=== PATIENT | male | born 1970 | race Caucasian/White ===

== ENCOUNTER 2023-05-05 12:39 | Observation (INO) | payer MEDICARE, MEDICAID, SELFPAY ==
[2023-05-05] VITALS (31 sets, daily range): BP systolic 95–142; BP diastolic 62–94; PULSE 60–81; RESP 10–22; TEMP 35.9–36.6; O2SAT 87–100; BMI 32.7
--- NOTE | ~2023-05-05 | MR_ITS ---
EXAMINATION: MR brain/brain stem wo/w con DATE: 05/06/2023 10:18 INDICATION: Altered mental status TECHNIQUE: Magnetic resonance imaging (MRI) of the brain and brainstem was performed without and with 20 mL Multihance intravenous contrast. Sequences included sagittal and axial T1-weighted SE, axial d iffusion-weighted FS SE, axial T2*-weighted GRE, axial T2-weighted FLAIR, and axial T2-weighted FSE. Postcontrast axial and coronal T1-weighted SE was obtained. Apparent diffusion coefficient (ADC) maps were created. COMPARISON: CT dated 05/05/2023 FINDINGS: There are no areas of restricted diffusion to suggest acute infarction. No intracranial hemorrhage or abnormal intracranial mass lesion. There are no intraparenchymal signal abnormalities seen on the ot her pulse sequences. The ventricles are symmetric and normal in size. There are no abnormal extra-axi al fluid collections. Flow voids are seen in the cerebral arteries on the T2-weighted sequences consi stent with their expected patency. Mild mucoperiosteal thickening in the paranasal sinuses. Visualize d orbits and soft tissues are unremarkable. There are no areas of abnormal enhancement on the post co ntrast images. IMPRESSION: 1. No acute intracranial process or abnormally enhancing brain lesions. Reviewed, dictated and finalized at location A.
--- NOTE | ~2023-05-05 | CT_ITS ---
Non-contrast Head CT History: Altered mental status Technique: Axial non-contrast imaging of the brain was performed. Dose reduction technique was used on this scan by utilizing automated exposure control and iterative reconstruction technique. The dose -length product (DLP) was 605.33 mGy-cm. Findings: There is no evidence of intracranial hemorrhage, mass lesion, or acute infarct. Brain par enchyma appears normal. The ventricles and subarachnoid spaces are normal in size. The calvarium ap pears normal. The visualized paranasal sinuses and mastoid air cells are clear. Impression: No significant abnormality seen. Reviewed, dictated and finalized at location . Impression: No significant abnormality seen.
--- NOTE | 2023-05-05 12:58 | ECG_ITS ---
Measurements Intervals [place] Rate: 67 P: -5 HI: 186 QRS: 30 QRSD: 93 T: 28 QT: 372 QTc: 395 Interpretive Statements SINUS RHYTHM NORMAL ECG NO PREVIOUS ECG AVAILABLE FOR COMPARISON Electronically Signed On 05-05-2023 20:33:35 CDT by Osman Rojas D.O.
[2023-05-05 13:08] LABS: Glucose Point of Care 99 mg/dl (65-105)
[2023-05-05 13:08] LABS: Basophils Percent Auto 0.6 % (0.2-1.2); Eosinophils Absolute Auto 0.2 K/mm3 (0-0.3); Hematocrit 48.2 % (42.0-52.0); Hemoglobin 15.5 g/dL (14.0-18.0); Immature Granulocyte Absolute 0.01 K/mm3 (0.00-0.031); Immature Granulocyte Percent A 0.2 % (0-0.5); Lymphocytes Absolute Auto 1.36 K/mm3 (0.9-3.2); Lymphocytes Percent Auto 27.6 % (18.3-44.2); Mean Corpuscular HGB Conc 32.2 g/dl (32-36); Mean Corpuscular Hemoglobin 31.7 pg (26-34); Mean Corpuscular Volume 98.6 fl (80-100); Mean Platelet Volume 9.7 fl (7.4-10.4); Monocytes Absolute Auto 0.3 K/mm3 (0.1-0.6); Monocytes Percent Auto 6.5 % (2.6-8.5); Neutrophils Absolute Auto 3.1 K/mm3 (1.3-6.7); Neutrophils Percent Auto 62.1 % (45.5-73.1); Platelet Count Result 191 k/mm3 (150-375); Red Blood Count 4.89 M/mm3 (4.6-6.20); Red Cell Distribution Width 13.5 % (11.5-14.5); White Blood Count 4.9 K/mm3 (4.5-10.0)
[2023-05-05 13:19] LABS: Alanine Aminotransferase 33 U/L (6-50); Albumin Level 4.3 g/dL (3.5-5.1); Alkaline Phosphatase 83 U/L (38-126); Anion Gap 4 mmol/L (8-16); Aspartate Amino Transferase 35 U/L (17-59); Bilirubin,Total 0.4 mg/dL (0.2-1.3); Blood Urea Nitrogen 11 mg/dL (9-20); Carbon Dioxide 31 mmol/L (22-30); Chloride 106 mmol/L (98-107); Creatine Kinase 176 U/L (55-170); Estimated CRCL calculation 86 ml/min; Estimated Glomerular Filt Rate > 60; Glucose 119 mg/dL (65-110); Potassium 4.3 mmol/L (3.4-5.0); Sodium 141 mmol/L (137-145)
[2023-05-05 13:20] LABS: Magnesium 2.4 mg/dL (1.6-2.3); Prothrombin Time 13.4 Seconds (11.1-14.7)
[2023-05-05 13:21] LABS: Partial Thromboplastin Time 29.5 SECONDS (22.3-36.8)
[2023-05-05] MEDS: LACTATED RINGERS 1,000 ML 999 ML IV CONT (13:30)
[2023-05-05 13:41] LABS: Acetaminophen < 10 ug/mL (10-30); Ammonia < 9 umol/L (9-30); Ethanol < 10 mg/dL (<10); Salicylate < 1.0 mg/dL (2-20)
--- NOTE | 2023-05-05 14:09 | ED.GENADULT ---
HPI - General Adult General Chief complaint: Alcohol Stated complaint: ams Time Seen by Provider: 05/05/23 12:44 Source: patient, EMS, RN notes reviewed and old records reviewed Mode of arrival: EMS Limitations: no limitations History of Present Illness HPI narrative: This is a 53 year old male with history of hypertension, hyperlipidemia, drug abuse who presents for evaluation of slurred speech and difficulty walking. Patient reports his last drink was 4 days ago and he has been in [place] for alcohol detox for 4 days. He reports he was started on new medication and he thinks it is making his act off. He states he started having trouble walking 3 days ago but he states he is walking better today. He reports he has been having this slow, slurred speech for 3 days. He denies headache, vomiting, chest pain, cough, shortness of breath, abdominal pain, diarrhea. I reviewed his medications with him and he seems to be taking Tegretol and Librium which are new medications for him. He last took Librium last night at 8 pm. IT appears he took Tegretol today. Related Data Home Medications Medication Instructions Recorded Confirmed albuterol sulfate 90 mcg/actuation 2 inh inhalation QID PRN short of 05/05/23 05/05/23 aerosol inhaler (Ventolin HFA) breath aripiprazole 10 mg tablet 10 mg PO HS 05/05/23 05/05/23 buspirone 15 mg tablet 15 mg PO Q12H 05/05/23 05/05/23 carbamazepine 200 mg tablet 200 mg PO Q12H 05/05/23 05/05/23 chlordiazepoxide HCl 25 mg capsule See Rx Instructions .Route 05/05/23 05/05/23 .COMPLEX PRN ciwa clonidine HCl 0.1 mg tablet 0.1 mg PO HS 05/05/23 05/05/23 famotidine 20 mg tablet 20 mg PO Q12H 05/05/23 05/05/23 fenofibrate 54 mg tablet 54 mg PO DAILY 05/05/23 05/05/23 fluticasone fur. 100 mcg-umeclid 1 inh inhalation DAILY 05/05/23 05/05/23 62.5 mcg-vilant 25 mcg inhalat.powder (Trelegy Ellipta) folic acid 1 mg PO DAILY 05/05/23 05/05/23 gabapentin 100 mg capsule 100 mg PO DAILY 05/05/23 05/05/23 gabapentin 100 mg capsule 200 mg PO HS 05/05/23 05/05/23 lisinopril 10 mg tablet 10 mg PO DAILY 05/05/23 05/05/23 lorazepam 0.5 mg tablet 0.5 - 1 mg PO DAILY PRN Anxiety 05/05/23 05/05/23 metoprolol tartrate 50 mg tablet 50 mg PO Q12H 05/05/23 05/05/23 multivitamin 1 tablet PO DAILY 05/05/23 05/05/23 nicotine 21 mg/24 hr daily 21 mg topical DAILY PRN Nicotine 05/05/23 05/05/23 transdermal patch Cravings nitroglycerin 0.4 mg sublingual 0.4 mg sublingual Q5MIN PRN Chest 05/05/23 05/05/23 tablet Pain omeprazole 40 mg capsule,delayed 40 mg PO DAILY 05/05/23 05/05/23 release prazosin 1 mg capsule 1 mg PO HS 05/05/23 05/05/23 rosuvastatin 40 mg tablet 40 mg PO HS 05/05/23 05/05/23 sumatriptan succinate 50 mg tablet See Rx Instructions .Route 05/05/23 05/05/23 .COMPLEX PRN Migraine Headache Allergies Allergy/AdvReac Type Severity Reaction Status Date / Time bee venom protein (honey bee) Allergy Hives Verified 05/05/23 12:47 Review of Systems Constitutional: Constitutional: Reports weakness Cardiovascular: Cardiovascular: Denies syncope, Denies rapid heart rate, Denies irregular heart rhythm, Denies leg edema and Denies dyspnea Respiratory: Respiratory: Denies chest congestion, Denies hemoptysis, Denies excessive phlegm production and Denies dyspnea Gastrointestinal: Gastrointestinal: Denies abdominal pain, Denies hematochezia, Denies diarrhea, Reports nausea and Denies vomiting Genitourinary: Genitourinary: Denies hematuria, Denies dysuria, Denies penile discharge and Denies testicular pain Musculoskeletal: Musculoskeletal: Denies joint swelling, Denies loss of height and Denies muscle weakness Neurologic: Denies syncope, Denies focal weakness and Reports weakness PMFSH Past Medical History Medical History (Updated 05/05/23 @ 22:09 by Uma Starr MD) Alcohol abuse Hyperlipidemia Hypertension Social History Social History (Updated 05/05/23 @ 14:15 by Uma Starr MD) Smoking pack
[2023-05-05 14:28] LABS: Appearance Urine Clear (Clear); Bilirubin Urine Negative (Negative); Blood Urine Negative (Negative); Color Urine Yellow (Yellow); Glucose Urine UA Negative (Negative); Ketones Urine Negative (Negative); Leukocyte Esterase Ur Negative LEU/UL (Negative); Nitrate Urine Negative (Negative); Protein Urine Negative (Negative); Specific Grav Ur 1.015 (1.001-1.035); pH Urine 7.5 (5.0-9.0)
[2023-05-05 14:36] LABS: Add Urine Microscopic? NO
[2023-05-05 14:53] LABS: Barbiturate Screen Urine Negative (Negative); Benzodiazepines Screen Urine Positive (Negative)
[2023-05-05 14:58] LABS: Amphetamine Screen Urine Negative (Negative); Cannabinoid Screen Urine Negative (Negative); Cocaine Screen Urine Negative (Negative); Methadone Screen Urine Negative (Negative); Opiate Screen Urine Negative (Negative); Phencyclidine Screen Urine Negative (Negative)
[2023-05-05] MEDS: ACETAMINOPHEN 500 MG TABLET 1000 MG PO (18:56)
[2023-05-05 21:30] LABS: Glucose Point of Care 100 mg/dl (65-105)
--- NOTE | 2023-05-05 21:56 | PM.IMHP ---
H&P: HPI History of Present Illness Date/Time: 05/05/23 21:56 Chief Complaint: Slurred Speech Narrative: 53 y/o M presents here with slurred speech, gait changes, and vision changes with PMH of alcoholism, HTN, HLD, depression, and pancreatitis. Patient presented here from inpatient treatment center, [facility], with 3 days slurred speech, change in gait /difficulty walking that is worse than his baseline, vision changes. Patient woke up with symptoms 3 days ago. symptoms did not resolve with time. Patient at baseline has some difficulty walking post hip surgery on the right, uses a cane. Now requiring a wheelchair. Speech is slow and slurred. No difficulty with word finding. No changes in sensation. No upper extremity weakness. Only recent change was that he started inpatient treatment for his alcohol abuse. Patient relapsed 4 years ago and has been drinking a 60 pack of beer daily. 4 days ago, was started on carbamazepine and Librium. Reports that the facility manages his medication and administers it to him. Review of Systems Review of Systems: All systems reviewed & are unremarkable except as noted in HPI and below PMFSH Past Medical History Medical History (Updated 05/05/23 @ 22:33 by Taisha Gongora APRN) Alcohol abuse Hyperlipidemia Hypertension Pancreatitis Surgical History Surgical History (Updated 05/05/23 @ 22:25 by Taisha Gongora APRN) History of hip surgery Hip/Pelvis Fx - R History of knee replacement L Knee History of surgery on upper extremity Fixation of Fx - L Family History Family History (Updated 05/05/23 @ 22:26 by Taisha Gongora APRN) Father Acute myocardial infarction Grandparent Acute myocardial infarction Lung cancer Mother Breast cancer Social History Social History (Updated 05/05/23 @ 22:28 by Taisha Gongora APRN) Social History: Patient currently lives alone. Son lives nearby and occasionally helps him. DNR. Surrogate decision maker - Xavi Monique (son). Smoking packs per day: 3 Smoking cigarettes per day: 60.0 Years smoked: 42 Smoking pack-years: 126.00 Smoking status: Current every day smoker Additional smoking assessment comments: As of 05/05/23 Alcohol intake: current Alcohol use details: 60 Pack of Beer - Daily Substance use: current Substance use type: marijuana Other substance usage details: 0.5 gallon vodka daily, now 60 pack of beer daily Last use: 05/01/2023 Lack of Transportation: No Lack of Food: Sometimes True Current Housing: I Do Not Have Housing Concerned About Future Housing: YES Difficulty Paying Gas/Electric Bills: YES Difficulty Paying for Meds: No Currently Unemployed: No Education: High School Diploma/GED Difficulty w/ Childcare or Family Care: No Living arrangements: alone Additional occupation/education comments: disabled Spiritual care concerns: No Meds Home Medications and Allergies Home Medications Medication Instructions Recorded Confirmed Type albuterol sulfate 90 mcg/actuation 2 inh inhalation QID PRN short of 05/05/23 05/05/23 History aerosol inhaler (Ventolin HFA) breath aripiprazole 10 mg tablet 10 mg PO HS 05/05/23 05/05/23 History buspirone 15 mg tablet 15 mg PO Q12H 05/05/23 05/05/23 History carbamazepine 200 mg tablet 200 mg PO Q12H 05/05/23 05/05/23 History chlordiazepoxide HCl 25 mg capsule See Rx Instructions .Route 05/05/23 05/05/23 History .COMPLEX PRN ciwa clonidine HCl 0.1 mg tablet 0.1 mg PO HS 05/05/23 05/05/23 History famotidine 20 mg tablet 20 mg PO Q12H 05/05/23 05/05/23 History fenofibrate 54 mg tablet 54 mg PO DAILY 05/05/23 05/05/23 History fluticasone fur. 100 mcg-umeclid 1 inh inhalation DAILY 05/05/23 05/05/23 History 62.5 mcg-vilant 25 mcg inhalat.powder (Trelegy Ellipta) folic acid 1 mg PO DAILY 05/05/23 05/05/23 History gabapentin 100 mg capsule 100 mg PO DAILY 05/05/23 05/05/23 History gabapentin 100 mg capsule 200 mg PO
[2023-05-06] VITALS (10 sets, daily range): BP systolic 112–143; BP diastolic 62–94; PULSE 62–80; RESP 16–18; TEMP 35.5–35.9; O2SAT 92–98
[2023-05-06] MEDS: METOPROLOL TARTRATE 50 MG TAB PO (04:24)
[2023-05-06] MEDS: busPIRone HCL 5 MG TABLET 15 MG PO ×2 (04:24→08:27)
[2023-05-06] MEDS: FAMOTIDINE 20 MG TABLET PO ×2 (04:24→08:27)
[2023-05-06] MEDS: NICOTINE (*PBKC) 21 MG PATCH 1 PATCH TOPICAL (04:52)
[2023-05-06 05:37] LABS: Glucose Point of Care 89 mg/dl (65-105)
[2023-05-06] MEDS: FLUTICASONE/UMECLIDIN/VILANTER 100-62.5-25 MCG ELLIPTA 1 PUFF INHALATION (08:16)
[2023-05-06 08:17] LABS: Glucose Point of Care 100 mg/dl (65-105)
[2023-05-06] MEDS: MULTIVITAMINS THERAPEUTIC TAB (*BKC) 1 TABLET PO (08:29)
[2023-05-06] MEDS: FOLIC ACID 1 MG TABLET PO (08:29)
[2023-05-06] MEDS: FENOFIBRATE,MICRONIZED 48 MG TABLET PO (08:29)
[2023-05-06] MEDS: GABAPENTIN 100 MG CAPSULE PO (08:30)
[2023-05-06] MEDS: LORazepam INJ (*CRX) 2 MG/ML VIAL 1 MG IV PUSH (10:00)
[2023-05-06 10:25] LABS: Hematocrit 47.7 % (42.0-52.0); Hemoglobin 15.4 g/dL (14.0-18.0); Mean Corpuscular HGB Conc 32.3 g/dl (32-36); Mean Corpuscular Volume 99.2 fl (80-100); Mean Platelet Volume 9.7 fl (7.4-10.4); Platelet Count Result 178 k/mm3 (150-375); Red Blood Count 4.81 M/mm3 (4.6-6.20); Red Cell Distribution Width 13.3 % (11.5-14.5); White Blood Count 3.8 K/mm3 (4.5-10.0)
[2023-05-06 10:47] LABS: Alanine Aminotransferase 35 U/L (6-50); Albumin Level 4.2 g/dL (3.5-5.1); Alkaline Phosphatase 74 U/L (38-126); Anion Gap 6 mmol/L (8-16); Aspartate Amino Transferase 38 U/L (17-59); Bilirubin,Total 0.5 mg/dL (0.2-1.3); Blood Urea Nitrogen 13 mg/dL (9-20); Calcium 8.9 mg/dL (8.4-10.2); Carbon Dioxide 28 mmol/L (22-30); Chloride 105 mmol/L (98-107); Estimated CRCL calculation 81 ml/min; Estimated Glomerular Filt Rate > 60; Glucose 117 mg/dL (65-110); Potassium 4.3 mmol/L (3.4-5.0); Sodium 139 mmol/L (137-145)
--- NOTE | 2023-05-06 11:27 | WPDNEURCNPN ---
Assessment and Plan Assessment and plan (1) Alcohol abuse: Code(s): F10.10 - Alcohol abuse, uncomplicated Status: Acute (2) Vision changes: Code(s): H53.9 - Unspecified visual disturbance Status: Acute (3) Gait disturbance: Code(s): R26.9 - Unspecified abnormalities of gait and mobility Status: Acute (4) Dysarthria: Code(s): R47.1 - Dysarthria and anarthria Status: Acute Plan Mr. Monique is a 53 year old male with a history of alcohol abuse presenting due to a several day history of gait changes, vision changes, and altered mental status, after admission to rehab center. He was started on Tegretol and Librium during the stay. His Tegretol dose is quite low so would not expect that to be cause of the change, although Tegretol toxicity can present similarly. Suspect a large part to be due to alcohol withdrawal. Also considering Wernicke-Korsakoff encephalopathy especially with the confabulations. On my read of the MRI I do not see an acute stroke. - Increase Thiamine to 500mg TID x 3 days, then 250mg daily x 3 days, then 100mg daily - B12, and folate pending -- replete if needed; will check TSH - CIWA protocol per hospitalist team Consult date: 05/06/23 Reason for consult: Altered mental status, concern for stroke HPI: Hima Monique is a 53 year old male with a history of alcohol and polysubstance abuse, HLD, HTN who was brought in from inpatient treatment center for a several day history of slurred speech, change in gait/ difficulty walking, and vision changes. Patient reportedly woke up with these symptoms 3 days prior to admission. At baseline patient does have some difficulty walking since he had surgery on his hip on the right. At baseline he uses a cane, but at this time he cannot even walk with that. Speech was reported to be slow and slurred. During the rehab admission, patient was started on Tegretol and Librium. When patient was evaluated at [facility], there were concerns regarding RLE weakness, vision changes, and slurred speech which rainsed concern for stroke. MRI brain has been done which on my read does not show an acute stroke. Patient received a dose of Ativan this morning. Per nursing, it seems that he has been confabulating about things like his son coming to see him, which is not true. B12, folate pending. Ammonia is normal. TSH not checked. Tegretol level is pending as well. His Tegretol is being held (dose was 200mg BID). He is on CIWA protocol. Review of Systems Review of Systems: ROS unobtainable: Yes unobtainable due to mental status PMFSH Past Medical History Medical History Alcohol abuse Hyperlipidemia Hypertension Pancreatitis Surgical History Surgical History History of hip surgery Hip/Pelvis Fx - R History of knee replacement L Knee History of surgery on upper extremity Fixation of Fx - L Family History Family History Father Acute myocardial infarction Grandparent Acute myocardial infarction Lung cancer Mother Breast cancer Social History Social History Social History: Patient currently lives alone. Son lives nearby and occasionally helps him. DNR. Surrogate decision maker - Xavi Monique (son). Smoking packs per day: 3 Smoking cigarettes per day: 60.0 Years smoked: 42 Smoking pack-years: 126.00 Smoking status: Current every day smoker Additional smoking assessment comments: As of 05/05/23 Alcohol intake: current Alcohol use details: 60 Pack of Beer - Daily Substance use: current Substance use type: marijuana Other substance usage details: 0.5 gallon vodka daily, now 60 pack of beer daily Last use: 05/01/2023 Lack of Transportation: No Lack of Food: Sometimes True Current Housing: I Do Not Have Housing C
[2023-05-06 11:49] LABS: Glucose Point of Care 94 mg/dl (65-105)
[2023-05-06 11:53] LABS: Folic Acid > 20.0 ng/mL (2.76->20)
[2023-05-06] MEDS: LORazepam INJ (*CRX) 2 MG/ML VIAL IV PUSH ×2 (12:32→16:00)
[2023-05-06 12:33] LABS: Thyroid Stimulating Hormone Reflex 0.748 uIU/mL (0.465-4.68)
--- NOTE | 2023-05-06 12:43 | PM.IMPN ---
Progress Note: A&P Assessment and Plan (1) Dysarthria: Code(s): R47.1 - Dysarthria and anarthria Status: Acute Assessment and Plan: Initial Admission NIHSS: Total 7 CT Head - no evidence of hemorrhage, lesion, or acute infarct. no significant abnormalities. MRI results pending. Neurology consulted Hold carbamazepine. Carbamazepine level pending. Librium PRN CBC, coags, and chemistries unremarkable. AST and ALT WNL. CK 176. UA negative. Ammonia normal. UDS positive for benzos (2) Gait disturbance: Code(s): R26.9 - Unspecified abnormalities of gait and mobility Status: Acute Assessment and Plan: fall precautions in place PT/OT evaluation and treat (3) Alcohol abuse: Code(s): F10.10 - Alcohol abuse, uncomplicated Status: Acute Assessment and Plan: CIWA protocol: Q4 neuro checks, POC glucose Q6, Q4 CIWA, seizure precautions telemetry monitoring Zofran p.r.n. for nausea Continue IV fluids. Thiamine daily (4) Hypertension: Code(s): I10 - Essential (primary) hypertension Status: Acute Assessment and Plan: continue home medication - clonidine, lisinopril, prazosin Plan - tobacco use: continue nicotine patches Subjective Date/time seen: 05/06/23 12:43 Interval history: patient was dysarthria on exam. . Patient has some increased agitation as well as tremors in his hands. He states that he has withdrawn and had seizures Before. He recently checked himself into a rehab facility 3 days ago and 3 days ago was when he had his last drink. Patient states that when he was younger he used to drink half a gal of vodka a day but now he has approximately 15 beers a day. The plan is to hopefully return patient to the rehab facility although today he did not want to go back there. Exam Narrative: GENERAL: Comfortable, no acute distress HENMT: moist mucous membranes EYES: EOM intact b/l NECK: no lymphadenopathy RESPIRATORY: clear to auscultation CARDIO: RRR GI: soft, nontender, bowel sounds present SKIN: no rashes EXTREMITIES: no edema, redness or tenderness, no hand tremors Objective Data Vital Signs Vital Signs: Vital Signs - 24 hr 05/05/23 12:49 05/05/23 12:48 05/05/23 12:49 Temperature 97.5 F L Pulse Rate 70 68 Pulse Rate [Apical] Respiratory Rate 14 15 Blood Pressure 122/86 122/86 Pulse Oximetry 100 96 99 Oxygen Delivery 05/05/23 13:00 05/05/23 13:02 05/05/23 13:20 Temperature Pulse Rate 67 78 67 Pulse Rate [Apical] Respiratory Rate 16 15 15 Blood Pressure 108/78 Pulse Oximetry 100 100 100 Oxygen Delivery 05/05/23 13:21 05/05/23 13:30 05/05/23 13:45 Temperature Pulse Rate 65 67 70 Pulse Rate [Apical] Respiratory Rate 16 16 15 Blood Pressure 115/82 Pulse Oximetry 98 98 Oxygen Delivery 05/05/23 13:47 05/05/23 14:03 05/05/23 14:16 Temperature Pulse Rate 68 72 68 Pulse Rate [Apical] Respiratory Rate 14 22 H 20 Blood Pressure 117/91 H Pulse Oximetry Oxygen Delivery 05/05/23 15:33 05/05/23 15:47 05/05/23 16:07 Temperature 97.8 F Pulse Rate 60 Pulse Rate [Apical] Respiratory Rate 15 Blood Pressure 105/67 111/68 136/85 Pulse Oximetry 97 Oxygen Delivery 05/05/23 16:08 05/05/23 16:15 05/05/23 16:17 Temperature Pulse Rate 62 62 63 Pulse Rate [Apical] Respiratory Rate 15 10 L 10 L Blood Pressure 127/94 H Pulse Oximetry 96 99 99 Oxygen Delivery 05/05/23 16:30 05/05/23 16:32 05/05/23 16:45 Temperature Pulse Rate 69 66 65 Pulse Rate [Apical] Respiratory Rate 12 10 L 13 Blood Pressure 134/94 H Pulse Oximetry 87 L 100 97 Oxygen Delivery 05/05/23 16:47 05/05/23 17:06 05/05/23 17:15 Temperature Pulse Rate 66 60 70 Pulse Rate [Apical] Respiratory Rate 15 16 17 Blood Pressure 122/83 Pulse Oximetry 96 Oxygen Delivery 05/05/23
[2023-05-06] MEDS: THIAMINE 500 MG/NS 100 ML 500 MG/100 ML BAG 200 MG IVPB ×2 (15:43→22:20)
[2023-05-06] MEDS: HALOPERIDOL LACTATE 5 MG/ML VIAL IM (16:45)
[2023-05-06] MEDS: chlordiazePOXIDE (*CRX) 25 MG CAPSULE PO (17:40)
[2023-05-06 17:42] LABS: Glucose Point of Care 84 mg/dl (65-105)
[2023-05-06] MEDS: OLANZapine 10 MG, WATER, STERILE FOR INJECTION 2.1 ML IM (18:36)
[2023-05-06 20:41] LABS: Glucose Point of Care 100 mg/dl (65-105)
[2023-05-07] VITALS (11 sets, daily range): BP systolic 97–120; BP diastolic 79–88; PULSE 64–100; RESP 14–20; TEMP 35.8–36.3; O2SAT 92–100
[2023-05-07] MEDS: PRAZOSIN HCL 1 MG CAPSULE PO ×2 (06:17→21:07)
[2023-05-07] MEDS: ARIPiprazole 10 MG TABLET PO ×2 (06:17→21:02)
[2023-05-07] MEDS: ROSUVASTATIN 20 MG TABLET 40 MG PO ×2 (06:18→21:08)
[2023-05-07] MEDS: busPIRone HCL 5 MG TABLET 15 MG PO ×3 (06:18→21:02)
[2023-05-07] MEDS: GABAPENTIN 100 MG CAPSULE 200 MG PO ×2 (06:18→21:05)
[2023-05-07] MEDS: METOPROLOL TARTRATE 50 MG TAB PO ×3 (06:19→21:07)
[2023-05-07] MEDS: FAMOTIDINE 20 MG TABLET PO ×2 (06:19→12:40)
[2023-05-07] MEDS: cloNIDine HCL 0.1 MG TABLET PO ×2 (06:19→21:03)
[2023-05-07] MEDS: THIAMINE 500 MG/NS 100 ML 500 MG/100 ML BAG 200 MG IVPB ×3 (06:20→22:29)
[2023-05-07 06:32] LABS: Hematocrit 45.4 % (42.0-52.0); Hemoglobin 14.9 g/dL (14.0-18.0); Mean Corpuscular HGB Conc 32.8 g/dl (32-36); Mean Corpuscular Hemoglobin 32.3 pg (26-34); Mean Corpuscular Volume 98.3 fl (80-100); Mean Platelet Volume 9.8 fl (7.4-10.4); Platelet Count Result 168 k/mm3 (150-375); Red Blood Count 4.62 M/mm3 (4.6-6.20); Red Cell Distribution Width 13.3 % (11.5-14.5); White Blood Count 6.8 K/mm3 (4.5-10.0)
[2023-05-07 06:44] LABS: Anion Gap 2 mmol/L (8-16); Blood Urea Nitrogen 12 mg/dL (9-20); Calcium 8.6 mg/dL (8.4-10.2); Carbon Dioxide 33 mmol/L (22-30); Chloride 106 mmol/L (98-107); Estimated CRCL calculation 75 ml/min; Estimated Glomerular Filt Rate > 60; Glucose 87 mg/dL (65-110); Potassium 3.9 mmol/L (3.4-5.0); Sodium 141 mmol/L (137-145)
[2023-05-07 06:56] LABS: Glucose Point of Care 76 mg/dl (65-105)
[2023-05-07] MEDS: FLUTICASONE/UMECLIDIN/VILANTER 100-62.5-25 MCG ELLIPTA 1 PUFF INHALATION (07:18)
[2023-05-07] MEDS: FOLIC ACID 1 MG TABLET PO (08:46)
[2023-05-07] MEDS: FENOFIBRATE,MICRONIZED 48 MG TABLET PO (08:46)
[2023-05-07] MEDS: MULTIVITAMINS THERAPEUTIC TAB (*BKC) 1 TABLET PO (08:47)
[2023-05-07] MEDS: lisinopriL 10 MG TABLET PO (08:47)
[2023-05-07] MEDS: GABAPENTIN 100 MG CAPSULE PO (08:47)
--- NOTE | 2023-05-07 11:35 | PM.IMPN ---
Progress Note: A&P Assessment and Plan (1) Dysarthria: Code(s): R47.1 - Dysarthria and anarthria Status: Acute Assessment and Plan: Initial Admission NIHSS: Total 7 CT Head - no evidence of hemorrhage, lesion, or acute infarct. no significant abnormalities. MRI negative for acute CVA Neurology consulted and suggested patient experiencing Wernicke's encephalopathy due to alcohol abuse Hold carbamazepine. Carbamazepine level pending. Librium PRN CBC, coags, and chemistries unremarkable. AST and ALT WNL. CK 176. UA negative. Ammonia normal. UDS positive for benzos (2) Gait disturbance: Code(s): R26.9 - Unspecified abnormalities of gait and mobility Status: Acute Assessment and Plan: fall precautions in place PT/OT evaluation and treat (3) Alcohol abuse: Code(s): F10.10 - Alcohol abuse, uncomplicated Status: Acute Assessment and Plan: CIWA protocol: Q4 neuro checks, POC glucose Q6, Q4 CIWA, seizure precautions telemetry monitoring Zofran p.r.n. for nausea Continue IV fluids. Thiamine daily (4) Hypertension: Code(s): I10 - Essential (primary) hypertension Status: Acute Assessment and Plan: continue home medication - clonidine, lisinopril, prazosin Plan - tobacco use: continue nicotine patches Subjective Date/time seen: 05/07/23 11:35 Interval history: patient is improving today. He has not required Ativan or Librium since yesterday evening. He was unable to tell me the town he was in but did state he was at the hospital for neurological symptoms likely due to alcohol withdrawal. He knew the year and the president as well. Patient states that he did not want to return to chest not. Plan to have Morgan with [facility] meet with the patient tomorrow to discuss his substance abuse and alcohol placements in outpatient services. Exam Narrative: GENERAL: Comfortable, no acute distress HENMT: moist mucous membranes EYES: EOM intact b/l NECK: no lymphadenopathy RESPIRATORY: clear to auscultation CARDIO: RRR GI: soft, nontender, bowel sounds present SKIN: no rashes EXTREMITIES: no edema, redness or tenderness, no hand tremors Objective Data Vital Signs Vital Signs: Vital Signs - 24 hr 05/06/23 12:00 05/06/23 14:00 05/06/23 15:48 Temperature 96.6 F L Pulse Rate 74 Pulse Rate [Apical] 76 80 Respiratory Rate 16 Blood Pressure 143/94 H Pulse Oximetry 98 Oxygen Delivery 05/06/23 20:00 05/06/23 22:00 05/07/23 06:19 Temperature 96 F L Pulse Rate 66 66 Pulse Rate [Apical] Respiratory Rate 18 Blood Pressure 112/69 Pulse Oximetry 92 Oxygen Delivery Room Air 05/07/23 06:00 05/07/23 07:15 05/07/23 07:15 Temperature 96.5 F L Pulse Rate 64 72 72 Pulse Rate [Apical] Respiratory Rate 20 16 16 Blood Pressure 120/82 Pulse Oximetry 96 97 Oxygen Delivery Room Air 05/07/23 08:47 05/07/23 08:00 05/07/23 08:00 Temperature Pulse Rate 85 Pulse Rate [Apical] 80 Respiratory Rate Blood Pressure Pulse Oximetry 92 Oxygen Delivery Room Air 05/07/23 09:49 Temperature Pulse Rate Pulse Rate [Apical] Respiratory Rate Blood Pressure Pulse Oximetry Oxygen Delivery Room Air Intake/Output Intake/Output: Intake & Output 05/04/23 05/05/23 05/06/23 05/07/23 23:59 23:59 23:59 23:59 Intake Total 1000 350 330 Output Total 950 Balance 1000 -600 330 Meds/Results Medications: Active Medications Generic Name Dose Route Start Last Admin Trade Name Freq PRN Reason Stop Dose Admin Albuterol 2 puff 05/05/23 23:04 Albuterol Sulfate (*Sp) Aerosol 1 Puff INHALATION QID PRN short of breath Aripiprazole 10 mg 05/06/23 21:00 05/07/23 06:17 Aripiprazole 10 Mg Tablet PO 10 mg HS DORITA Administration Buspirone HCl 15 mg 05/05/23 23:45 05/07/23 08:46 Buspirone Hcl 5 Mg Tablet PO
[2023-05-07 12:45] LABS: Glucose Point of Care 111 mg/dl (65-105)
[2023-05-07] MEDS: LORazepam INJ (*CRX) 2 MG/ML VIAL IV PUSH (19:48)
[2023-05-07] MEDS: OLANZapine 10 MG, WATER, STERILE FOR INJECTION 2.1 ML IM (21:27)
[2023-05-07 23:44] LABS: Glucose Point of Care 104 mg/dl (65-105)
[2023-05-08 04:55] VITALS: BP 90/68; PULSE 51; RESP 20; TEMP 35.8; O2SAT 100
[2023-05-08 06:02] LABS: Glucose Point of Care 105 mg/dl (65-105)
[2023-05-08] MEDS: SODIUM CHLORIDE 0.9% IV 500 ML IV CONT (06:16)
[2023-05-08 06:36] VITALS: BP 107/80; PULSE 65
[2023-05-08 06:43] LABS: Hematocrit 45.2 % (42.0-52.0); Hemoglobin 14.4 g/dL (14.0-18.0); Mean Corpuscular HGB Conc 31.9 g/dl (32-36); Mean Corpuscular Hemoglobin 31.6 pg (26-34); Mean Corpuscular Volume 99.3 fl (80-100); Mean Platelet Volume 9.8 fl (7.4-10.4); Platelet Count Result 162 k/mm3 (150-375); Red Blood Count 4.55 M/mm3 (4.6-6.20); Red Cell Distribution Width 13.2 % (11.5-14.5); White Blood Count 6.2 K/mm3 (4.5-10.0)
[2023-05-08 06:52] LABS: Alanine Aminotransferase 33 U/L (6-50); Albumin Level 3.9 g/dL (3.5-5.1); Alkaline Phosphatase 74 U/L (38-126); Anion Gap 5 mmol/L (8-16); Aspartate Amino Transferase 32 U/L (17-59); Bilirubin,Total 0.4 mg/dL (0.2-1.3); Blood Urea Nitrogen 17 mg/dL (9-20); Calcium 8.8 mg/dL (8.4-10.2); Carbon Dioxide 29 mmol/L (22-30); Chloride 107 mmol/L (98-107); Estimated CRCL calculation 69 ml/min; Estimated Glomerular Filt Rate 57; Glucose 101 mg/dL (65-110); Sodium 141 mmol/L (137-145)
[2023-05-08] MEDS: FLUTICASONE/UMECLIDIN/VILANTER 100-62.5-25 MCG ELLIPTA 1 PUFF INHALATION (08:08)
[2023-05-08] MEDS: THIAMINE 500 MG/NS 100 ML 500 MG/100 ML BAG 200 MG IVPB (08:43)
[2023-05-08] MEDS: MULTIVITAMINS THERAPEUTIC TAB (*BKC) 1 TABLET PO (08:44)
[2023-05-08] MEDS: METOPROLOL TARTRATE 50 MG TAB PO (08:44)
[2023-05-08] MEDS: lisinopriL 10 MG TABLET PO (08:44)
[2023-05-08] MEDS: GABAPENTIN 100 MG CAPSULE PO (08:44)
[2023-05-08] MEDS: FENOFIBRATE,MICRONIZED 48 MG TABLET PO (08:44)
[2023-05-08] MEDS: FOLIC ACID 1 MG TABLET PO (08:44)
[2023-05-08] MEDS: busPIRone HCL 5 MG TABLET 15 MG PO (10:20)
[2023-05-08] MEDS: FAMOTIDINE 20 MG TABLET PO (10:21)
--- NOTE | 2023-05-08 11:02 | PM.DS ---
DS: Admitting Diagnosis Discharge Date 05/08/23 Admitting Diagnosis neurological symptoms of stroke, alcoholism DS: Discharge Diagnosis Discharge Diagnosis (1) Dysarthria: Code(s): R47.1 - Dysarthria and anarthria Status: Acute (2) Gait disturbance: Code(s): R26.9 - Unspecified abnormalities of gait and mobility Status: Acute (3) Alcohol abuse: Code(s): F10.10 - Alcohol abuse, uncomplicated Status: Acute (4) Hypertension: Code(s): I10 - Essential (primary) hypertension Status: Acute DS: Summary Hospital Course Hospital Course: This is a 53-year-old male that presented to the hospital on 05/05/2023 due to slurred speech, gait changes in visual changes. He does have past medical history of alcoholism in his last drink was 3 days prior to presentation. For the last 3 days he has been in [facility] detox program and he has been receiving Librium and carbamazepine there. He completed this program and after the completion of this he was sent to the hospital due to neurological changes. CT head negative for acute infarct or bleed. MRI ordered and did not reveal acute intracranial abnormality. 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 Thiamin 500 mg t.i.d. x3 started then taper thereafter. Patient did well and did require Ativan and Librium at 1st but slowly began to improve not requiring any Librium or Ativan with low CIWA scores under 8. Patient was offered to return to [place] to receive further therapy but he denied at this time. Highly encourage patient to be seen [place] to receive further treatment counseling but he was adamant that he wanted to return home. Patient is oriented and able to make his own decisions. He is medically stable. His labs and vital signs are stable and he is medically clear for discharge at this time Time Spent with Patient Time attestation: Total time spent providing and/or coordinating discharge services: Exam Narrative: GENERAL: Comfortable, no acute distress HENMT: moist mucous membranes EYES: EOM intact b/l NECK: no lymphadenopathy RESPIRATORY: clear to auscultation CARDIO: RRR GI: soft, nontender, bowel sounds present SKIN: no rashes EXTREMITIES: no edema, redness or tenderness, no hand tremors DS: Data Data Completed and Pending Labs on day of discharge: Labs from last 24 hours 05/08/23 05/08/23 05/07/23 06:22 06:00 23:41 WBC 6.2 RBC 4.55 L Hgb 14.4 Hct 45.2 MCV 99.3 MCH 31.6 MCHC 31.9 L RDW 13.2 Plt Count 162 MPV 9.8 Sodium 141 Potassium 4.0 Chloride 107 Carbon Dioxide 29 Anion Gap 5 L BUN 17 Creatinine 1.30 Estim Creat Clear Calc 69 Estimated GFR 57 L Glucose 101 POC Capillary Glucose 105 104 Calcium 8.8 Total Bilirubin 0.4 AST 32 ALT 33 Alkaline Phosphatase 74 Total Protein 7.0 Albumin 3.9 05/07/23 12:42 WBC RBC Hgb Hct MCV MCH MCHC RDW Plt Count MPV Sodium Potassium Chloride Carbon Dioxide Anion Gap BUN Creatinine Estim Creat Clear Calc Estimated GFR Glucose POC Capillary Glucose 111 H Calcium Total Bilirubin AST ALT Alkaline Phosphatase Total Protein Albumin Discharge Plan Discharge Attending physician on discharge: Yosvany Jordan Consulting providers: Saskia Bejarano Discharging Clinician: Yanci Reyes Patient Disposition: Home, Self-Care Activity: as tolerated Diet: regular Discharge Instructions: Medications: Thiamine 100 mg 3 times daily for 4 more days. After this take thiamine 100 mg daily indefinitely. Discharge disposition: Take medications as prescribed Monitor blood pressures Avoid social areas, you wear a mask when in social settings Encouraged to continue with yearly vaccinations Return to the emergency department if he developed sudden shortness of
[2023-05-08 12:05] LABS: Glucose Point of Care 111 mg/dl (65-105)
[2023-05-10 07:39] LABS: Carbamazepine Tegretol 6.5 mcg/mL (4.0-12.0)
== END 2023-05-08 16:50 | disposition home or self-care (01) ==
LOC: ANHED 13:40 → ANH3MEDSUR 18:51
PROVIDERS: Internal Medicine Critical Care Medicine; Student in an Organized Health Care Education/Training Program; Admitting Provider General Practice; Emergency Provider General Practice; Visit Provider Hospitalist
DX: R47.1 Dysarthria and anarthria (principal); H53.9 Unspecified visual disturbance; R26.9 Unspecified abnormalities of gait and mobility; R26.2 Difficulty in walking, not elsewhere classified; R06.02 Shortness of breath; R07.9 Chest pain, unspecified; F41.9 Anxiety disorder, unspecified; I10 Essential (primary) hypertension; G43.909 Migraine, unspecified, not intractable, without status migrainosus; E78.5 Hyperlipidemia, unspecified; K85.90 Acute pancreatitis without necrosis or infection, unspecified; F32.A Depression, unspecified; G89.29 Other chronic pain; M25.559 Pain in unspecified hip; F17.210 Nicotine dependence, cigarettes, uncomplicated; F10.230 Alcohol dependence with withdrawal, uncomplicated; Y90.0 Blood alcohol level of less than 20 mg/100 ml; F12.90 Cannabis use, unspecified, uncomplicated; Z79.51 Long term (current) use of inhaled steroids; Z79.899 Other long term (current) drug therapy
CPT/HCPCS: 36415; 70450; 70553; 80048; 80053; 80156; 80307; 81003; 82140; 82550; 82607; 82746; 82948; 83735; 84443; 85025; 85027; 85610; 85730; 93005; 94640; 96360; 96361; 96365; 96372; 96375; 96376; 97110; 97116; 97161; 99285; A9270; A9577; G0378; J1630; J2060; J3411; J7040; J7120